=== PATIENT | male | born 2005 | race Caucasian/White ===

== ENCOUNTER 2025-01-26 18:15 | Emergency (ER) | payer OTHER ==
[~2025-01-26] VITALS: Ht 170.2 cm; Wt 99.8 kg
[2025-01-26 18:27] VITALS: TEMP 98.3
[2025-01-26] MEDS: TDAP [DIPH/PERTUSSIS/TET] 0.5 ML VIAL IM ONE (18:44)
[2025-01-26] MEDS: BACITRACIN ZINC OINT PACKET 1 EA PACKET TP ONE (18:45)
[2025-01-26] MEDS ORDERED: MUPI22OI2 TP (18:45)
[2025-01-26 18:54] VITALS: BP 124/77; O2SAT 97
== END 2025-01-26 19:06 | disposition home or self-care (01) ==
LOC: ER 18:19
DX: S61.011A Laceration without foreign body of right thumb without damage to nail, initial encounter (principal); W26.8XXA Contact with other sharp object(s), not elsewhere classified, initial encounter; Y93.89 Activity, other specified; Y92.89 Other specified places as the place of occurrence of the external cause; Y99.0 Civilian activity done for income or pay
CPT/HCPCS: 99283; 90471; 90715; A6403